=== PATIENT | male | born 1950 | race Caucasian/White ===

== ENCOUNTER 2018-01-26 15:39 | Emergency (ER) | payer OTHER ==
--- NOTE | 2018-01-26 15:55 | EDPHY ---
H & P Stated Complaint: injury to left 2nd finger tip at work. tetanus utd Time Seen by Provider: 01/26/18 15:52 HPI/ROS: HPI CHIEF COMPLAINT: Left second digit finger laceration HISTORY OF PRESENT ILLNESS: 67-year-old male, otherwise healthy, does have a history of coronary artery disease with 1 stent, denies any other significant medical history and tells me his tetanus shot is up-to-date. He presents emergency room left index finger laceration. He sustained this at work. He was using a machine that puts ROM it is in place on signs and better is. The machine came down to put the ground in however came down quickly and he caught his left index finger in this machine. He sustained a laceration to the lateral aspect distal aspect left index finger. He is neurovascular intact. No other injuries. Past Medical History: Coronary artery disease with 1 stent Past Surgical History: Denies recent surgery Social History: Denies drugs alcohol tobacco. Family History: Noncontributory. ROS REVIEW OF SYSTEMS: 10 Systems were reviewed and negative with the exception of the elements mentioned in the history of present illness. Exam Constitutional triage nursing summary reviewed, vital signs reviewed, awake/ alert. Eyes normal conjunctivae and sclera, EOMI, PERRLA. HENT normal inspection, atraumatic, moist mucus membranes, no epistaxis, neck supple/ no meningismus, no raccoon eyes. Respiratory clear to auscultation bilaterally, normal breath sounds, no respiratory distress, no wheezing. Cardiovascular rate normal, regular rhythm, no murmur, no edema, distal pulses normal. Gastrointestinal soft, non-tender, no rebound, no guarding, normal bowel sounds, no distension, no pulsatile mass. Genitourinary no CVA tenderness. Musculoskeletal left hand: Left 2nd digit: Distal aspect lateral aspect of the digit is a 4 cm laceration. Involve the edge of the nail. Possible tuft injury. Otherwise neurovascular intact. no midline vertebral tenderness, full range of motion, no calf swelling, no tenderness of extremities, no meningismus, good pulses, neurovascularly intact. Skin pink, warm, & dry, no rash, skin atraumatic. Neurologic awake, alert and oriented x 3, AAOx3, moves all 4 extremities equally, motor intact, sensory intact, CN II-XII intact, normal cerebellar, normal vision, normal speech. Psychiatric normal mood/affect. Heme/Lymph/Immune no lymphadenopathy. Differential Diagnosis: Includes but is not limited to in a particular order index finger laceration, open index finger laceration, tuft fracture, foreign body Medical Decision Making: Plan for this patient x-ray left index finger. Will body and fracture. Will place a digital block. Then his laceration will need to be repaired. Re-evaluation: Laceration Repair Procedure: Verbal Consent was obtained, Under sterile conditions, The patient had lidocaine without epinephrine used approximately 5ccs DIGITAL BLOCK was performed to local anesthetize the Left index finger 4CM Laceration. The wound was copiously irrigated with sterile fluid, the wound was explored for foreign bodies there were none visualized, the wound was explored with a sterile glove to the base. No gross contamination, clean wound. There are no deep structures involved, including no arterial injury. SIX 5.O PROLENE interrupted Sutures were placed in this patient's laceration. He had good close approximation of the wound edges. He Tolerated this well. Patient understands the keep the finger in a splint for protection and comfort. Pain medicine for throbbing. Warm soapy water in 24 hr is fine on the wound. Watch for signs of infection Return to the ER for worsening symptoms and sutures to be removed in 14 days. Patient placed in Splint Aluminform Splint for protection/comfort. He is neurovasc intact. good cap refill. Full rom. Sensation intact prior to digital block. Xray of the digit reviewed. Negative for acute fracture. or fb seen. Reviewed by myself. Source: Patient - Personal History Current Tetanus Diphtheria and Acellular Pertussis (TDAP): Yes Tetanus Vaccine Date: 2015 - Medical/Surgical History Hx Asthma: No Hx Chronic Respiratory Disease: No Hx Diabetes: No Hx Cardiac Disease: No Hx Renal Disease: No Hx Cirrhosis: No Hx Alcoholism: No Hx HIV/AIDS: No Hx Splenectomy or Spleen Trauma: No Other PMH: Appy - Social History Smoking Status: Light smoker Constitutional: Initial Vital Signs Temperature (C) 37 C 01/26/18 15:46 Heart Rate 76 01/26/18 15:46 Respiratory Rate 18 01/26/18 15:46 Blood Pressure 130/75 H 01/26/18 15:46 O2 Sat (%) 92 01/26/18 15:46 O2 Delivery Mode Room Air Allergies/Adverse Reactions: No Known Allergies Allergy (Verified 01/26/18 15:46) Home Medications: Medication Instructions Recorded Aspirin 81mg (*) 01/26/18 Atorvastatin Calcium 01/26/18 Ibuprofen [Motrin (*)] 800 mg PO Q6-8PRN #10 tab 01/26/18 Lisinopril 01/26/18 Departure - Departure Disposition: Home, Routine, Self-Care Clinical Impression: Laceration Condition: Good Instructions: Care For Your Stitches (ED), Laceration (ED) Additional Instructions: 1. Your sutures need to be removed in 14 days. 2. Keep your wound clean, dry and protected. Watch for infection. You can gently wash this area with soap and water in 24 hours. 3. return to er if worsening symptoms, questions or concerns. Return in 14 days to have sutures removed. Prescriptions: Ibuprofen [Motrin (*)] 800 mg PO Q6-8PRN #10 tab
[2018-01-26] MEDS ORDERED: HYDROCOD/APAP 5/325 PREPACK#6 BTL TAKEHOME ONE (16:29)
[2018-01-26 17:06] VITALS: BP 128/75
== END 2018-01-26 17:16 | disposition home or self-care (01) ==
LOC: CED 15:39
PROC: 0HQGXZZ Repair Left Hand Skin, External Approach (ICD-10-PCS; principal; 2018-01-26)
DX: S61.211A Laceration without foreign body of left index finger without damage to nail, initial encounter (principal); W31.1XXA Contact with metalworking machines, initial encounter; Y99.0 Civilian activity done for income or pay; Y92.63 Factory as the place of occurrence of the external cause; F17.200 Nicotine dependence, unspecified, uncomplicated
CPT/HCPCS: 73140-PO